=== PATIENT | female | born 1960 | race Caucasian/White ===

== ENCOUNTER 2023-10-10 09:24 | Outpatient (CLI) | payer OTHER ==
[2023-10-10] MEDS ORDERED: Iopamidol 370 76% 100 ML VIAL ONE (10:18)
== END 2023-10-10 09:25 | disposition home or self-care (01) ==
LOC: CSHCT 09:24
PROVIDERS: ATTEND Family Medicine
DX: S32.10XS Unspecified fracture of sacrum, sequela (principal); S32.2XXS Fracture of coccyx, sequela; K57.30 Diverticulosis of large intestine without perforation or abscess without bleeding
CPT/HCPCS: 72194; 82565; Q9967

== ENCOUNTER 2024-02-27 16:37 | Emergency (ER) | payer SELFPAY ==
[2024-02-27] MEDS ORDERED: Aspirin Chewable 81 MG TAB ONE (17:10)
[2024-02-27 17:52] LABS: #Basophils 0.05 10x3/uL (0.0-0.2); #Eosinophils 0.04 10x3/uL (0.0-0.5); #Monocytes 0.61 10x3/uL (0.0-1.1); #Neutrophils 3.42 10x3/uL (1.5-8.4); %Basophils 0.8 % (0.0-2.0); %Eosinophils 0.7 % (0.0-6.0); %Lymphocytes 31.6 % (18.0-47.0); %Monocytes 10.1 % (0.0-10.0); %Neutrophils 56.6 % (40.0-75.0); Hematocrit 40.8 % (34.9-44.5); Hemoglobin 13.2 g/dL (12.0-15.5); Mean Corpuscular HGB CONC 32.4 g/dL (32.0-36.0); Mean Corpuscular Volume 83.6 fL (81.6-98.3); Mean Platelet Volume 9.2 fL (7.4-10.4); Platelet Count 190 10x3/uL (150-450); RBC Distribution Width 12.4 % (11.5-14.5); Red Blood Cell (RBC) Count 4.88 10x6/uL (3.90-5.03)
[2024-02-27 18:01] LABS: ALT (SGPT) 23 U/L (8-55); AST (SGOT) 25 U/L (5-34); Albumin 4.3 g/dL (3.4-4.8); Alkaline Phosphatase 102 U/L (40-110); Anion Gap 12 mmol/L (10-20); BUN (Urea Nitrogen) 13 mg/dL (9.8-20.1); Bilirubin, Total 0.6 mg/dL (0.2-1.2); Calc. Creatinine Clearance 0 mL/min (70-130); Calcium 9.6 mg/dL (7.8-10.44); Carbon Dioxide 23 mmol/L (23-31); Chloride 110 mmol/L (98-107); Estimated GFR 80; Globulin 3.2 g/dL (2.4-3.5); Glucose 138 mg/dL (80-115); Potassium 3.6 mmol/L (3.5-5.1); Protein, Total 7.5 g/dL (5.8-8.1); Sodium 141 mmol/L (136-145)
[2024-02-27 18:04] LABS: Troponin I Less than 0.010 ng/mL (< 0.028)
[2024-02-27] MEDS ORDERED: Ketorolac Tromethamine 30 MG (1 mL) VIAL ONE (18:55)
[2024-02-27 19:46] LABS: Troponin I Less than 0.010 ng/mL (< 0.028)
== END 2024-02-27 20:11 | disposition home or self-care (01) ==
LOC: CSHERS 16:37
DX: R07.9 Chest pain, unspecified (principal)
CPT/HCPCS: 36415; 71046; 80053; 83880; 84484; 85025; 85379; 93005; 96374; J1885